=== PATIENT | male | born 1950 | race Caucasian/White ===

== ENCOUNTER 2019-10-07 15:30 | Emergency (ER) | payer MEDICARE, MEDICAID, SELFPAY ==
[2019-10-07 16:22] VITALS: BP 138/88; PULSE 60; RESP 16; TEMP 36.7; O2SAT 100; BMI 32.5
--- NOTE | 2019-10-07 16:34 | XRR_ITS ---
PROCEDURE INFORMATION: Exam: XR Right Tibia and Fibula Exam date and time: 10/07/2019 5:15 PM Age: 68 years old Clinical indication: Injury or trauma; Fall; Initial encounter; Blunt trauma; Lower leg; Right; Injury date: 10/07/19 TECHNIQUE: Imaging protocol: XR Right tibia and fibula. Views: 2 views. COMPARISON: No relevant prior studies available. FINDINGS: Bones/joints: There are fractures of the distal tibia and distal fibula. These are better evaluated on ankle radiographs and described on corresponding report. No fracture of the proximal or mid tibia identified. No fracture of the proximal or mid fibula identified. Soft tissues: No subcutaneous gas or radiopaque foreign body identified. XR/XR tibia fibula RT 2V [id number] IMPRESSION: 1. There are fractures of the distal tibia and distal fibula. These are better evaluated on ankle radiographs and described on corresponding report.
--- NOTE | 2019-10-07 16:35 | W.ED.EXTPRO ---
Documented by User: Katarzyna Belcher APRN 10/07/19 18:01 HPI - Extremity Problem General: Chief complaint: Extremity Injury, Lower Stated complaint: Right ankle injury Time Seen by Provider: 10/07/19 16:30 Source: patient Mode of arrival: wheelchair History of Present Illness: HPI Narrative: Fell walking down dirt road, slipping on rocks. Since fall left foot has been externally rotated and due to pain patient is unable to correct. Patient complains of pain starting at his knee into his lower aspect of his ankle on the right side. MD Complaint: extremity pain Review of Systems General: Reports: 10 or more systems reviewed and unremarkable except in HPI and below Neuro: Reports: difficulty walking (Fell right LE externally rotated. Pain in LLE. ) and other PFSH ED PFSH: Social History (Updated 10/07/19 @ 16:29 by Camilo Phoenix RN) Smoking and tobacco status: never smoked Alcohol intake: current Alcohol intake frequency: holidays/special occasions only Substance/Drug Use: never Physical Exam Const: COMMON NORMALS: no acute distress, patient oriented x3 and alert GENERAL APPEARANCE: cooperative and well kempt HENMT: COMMON NORMALS: normocephalic, atraumatic, external ears normal and TM's normal bilaterally HEAD & SCALP: normocephalic and atraumatic EXTERNAL EAR: Yes external ears normal TYMPANIC MEMBRANE: TM's normal bilaterally MOUTH: Normal oral and palatal mucosa present Eye: COMMON NORMALS: Equal, round and reactive pupils present GENERAL EYE: appearance normal, both eyes and all related structures PUPIL: Yes Equal, round and reactive pupils present and Yes Pupil accommodation reflex normal Neck/C-Spine: COMMON NORMALS: full ROM, no lymphadenopathy, supple, no JVD, Thyroid normal and No carotid bruits GENERAL: Yes trachea midline THYROID: Thyroid normal, no masses and nontender Lymph: LYMPHATIC: no lymphadenopathy noted Chest: CHEST: Yes Symmetrical chest wall rise Resp: COMMON NORMALS: normal respiratory effort and clear to auscultation bilaterally EFFORT & INSPECTION: Yes able to speak in complete sentences AUSCULTATION: clear to auscultation bilaterally Cardio: COMMON NORMALS: no JVD, regular rhythm and No murmurs present (Cardio) PALPATION: normal PMI RHYTHM: regular rhythm GI: COMMON NORMALS: non-tender, no masses and no bruits INSPECTION: Yes normal to inspection, No scar and No striae AUSCULTATION: Yes normoactive bowel sounds PALPATION: No Tenderness to palpation present (GI), No Guarding due to palpation present (GI), No Rigid due to palpation, No Hernia present and No Rebound tenderness present PERCUSSION: normal to percussion Back/Pelvis: GENERAL BACK: No swelling and No tenderness THORACIC SPINE/UPPER BACK: No pain with ROM Extremity: COMMON NORMALS: normal to inspection, no clubbing, cyanosis or edema and no calf tenderness RIGHT LOWER EXTREMITY: Yes foot & digits (Localized edema to central aspect of ankle/lower leg. ) and Yes foot & digits (Foot angled externally, unable to correct due to pain per pt. ) Neuro: COMMON NORMALS: patient oriented x3 and moves all extremities SENSORIUM/ORIENTATION: Yes alert CRANIAL NERVES: Yes CN normal except as noted GAIT: Yes Normal gait present MOTOR EXAM: 5/5 motor strength present throughout Psych: COMMON NORMALS: mental status grossly normal APPEARANCE: Yes well kempt Skin: COMMON NORMALS: turgor normal NARRATIVE SKIN EXAM: Normal coloration of skin GENERAL SKIN EXAM: turgor normal LESIONS: no lesions RASHES: no rashes TRAUMA: no lacerations or abrasions Course Consultations: Consultation #3: Contacting regarding Bim[place]or fracture Rt. Time: 17:59 Vital Signs: Vital signs: Vital Signs Temperature 98.0 F 10/07/19 16:22 Pulse Rate 64 10/07/19 20:18 Respiratory Rate 16 10/07/19 20:18 Blood Pressure 131/54 10/07/19 20:18 Pulse Oximetry 100 10/07/19 20:18 MDM - Extremity (Nontraumatic) Lab Data: Labs: Lab Results 10/07/19 10/07/19 Range/Units 16:50 16:50 WBC 10.5 H (4.0-10.0) 10^3/ uL RBC 4.99 (4.1-5.3) 10^6/u L Hgb 15.0 (11.7-16.6) g/dL Hct 45.8 (42.0-52.0) % MCV 91.8 (80-94) fL MCH 30.1 (28.0-34.0) pg MCHC 32.8 (30.0-36.0) g/dL RDW 13.2 (12.1-15.1) % Plt Count 294 (130-400) 10^3/c mm MPV 11.3 H (7.4-10.4) fL Neut % (Auto) 75.5 % Lymph % (Auto) 12.7 % Gates % (Auto) 8.6 % Eos % (Auto) 1.9 % Baso % (Auto) 1.0 % Neut # (Auto) 7.93 H (1.8-7.7) 10^3/u L Lymph # (Auto) 1.3 (0.8-4.8) 10^3/u L Gates # (Auto) 0.9 (0.2-0.9) 10^3/u L Eos # (Auto) 0.2 (0.0-0.8) 10^3/u L Baso # (Auto) 0.1 (0.0-0.1) 10^3/u L Nucleated RBC % (a uto) 0 % Nucleated RBCs # 0.0 /100WBC Sodium 137 (136-145) mmol/L Potassium 3.4 L (3.5-5.1) mmol/L Chloride 98 (98-107) mmol/L Carbon Dioxide 28 (22-29) mmol/L Anion Gap 14.4 (5-19) BUN 14 (8-23) mg/dL Creatinine 1.1 (0.7-1.2) mg/dL GFR Calculation 67.0 L (90-130) mL/min Glucose 158 H (65-115) mg/dL Calculated Osmolal ity 284 L (285-295) mOsm/k g Calcium 9.4 (8.5-10.5) mg/dL Total Bilirubin 0.7 (0.15-1.2) mg/dL AST 34 (0-40) U/L ALT 60 H (0-41) U/L Alkaline Phosphata se 79 (40-130) IU/L Total Protein 6.8 (6.6-8.7) g/dL Albumin 4.3 (3.5-5.2) g/dL Globulin 2.5 (1.3-4.6) g/dL Discharge Plan Discharge Patient Disposition: Home, Self-Care Clinical Impression: Ankle fracture, right Qualifiers: Encounter type: initial encounter Fracture type: closed Qualified Code(s): S82.891A - Other fracture of right lower leg, initial encounter for closed fracture Condition: Stable Prescriptions: [place] 5-325 mg tablet 1 tab PO Q6H PRN (Reason: pain) 5 Days Qty: 20 RF: 0 Zofran 4 mg tablet 4 mg PO Q6H PRN (Reason: nausea and vomiting) Qty: 20 RF: 0 Discharge Orders: Discharge Order (Routine); Ordered 10/07/19 Ordered By: Cait Cobos Referrals: Sherri Iyer MD [Physician] - 1-3 days Discharge Diet: Advance as tolerated Discharge Activity: Use walker/crutches as instructed Patient Instructions: Ankle Fracture (ED) Activity Restrictions/Additional Instructions: Please return to the ER immediately for any of the signs or symptoms listed on your discharge instruction sheets, worsening/changing of your symptoms, you are not getting better as quickly as expected, or for ANY other cause or concerns. Take your pain medications as I have directed. Keep your leg elevated above your heart as much as possible and do not bear weight on your leg at any time. Be certain to follow-up with Dr. Downs as soon as possible as she will need to schedule an outpatient surgery for definitive fixation. Discharge Date/Time: 10/07/19 20:24 Sign Out Sign Out Data: Patient Sign Out occurred on 10/07/19 at 18:05. Patient's care was discussed, and care was transferred from to Cait Cobos. Coding Level of Care Code ED Tune Up Mechanic for Chg Fwd Exam Comprehensive Documented by User: Cait Cobos 10/07/19 23:07 HPI - Extremity Problem General: Chief complaint: Extremity Injury, Lower Stated complaint: Right ankle injury Time Seen by Provider: 10/07/19 16:30 [facility] ED PFSH: Social History (Updated 10/07/19 @ 16:29 by Camilo Phoenix RN) Smoking and tobacco status: never smoked Alcohol intake: current Alcohol intake frequency: holidays/special occasions only Substance/Drug Use: never Procedures Orthopedic Fracture Reduction Fracture #1: Time Out Performed: Yes Side: right Fracture Reduction Location: other (Bimalleolar right ankle fracture) Analgesia: procedural sedation Technique: direct manipulation Post Reduction X-rays Demonstrate: anatomical reduction Post-reduction neuro exam: intact Splint Applied: Yes Patient Tolerated Procedure: well Procedural Sedation Indication: fracture/dislocation reduction ASA Class: II Preparation: bulk delivery driver applied, pulse oximeter, capnometry used, supplemental O2 applied and suction/airway equipment at bedside IV Propofol dose (mg): 200 Patient Tolerated Procedure: well and no complications Complications: none Course Vital Signs: Vital signs: Vital Signs Temperature 98.0 F 10/07/19 16:22 Pulse Rate 64 10/07/19 20:18 Respiratory Rate 16 10/07/19 20:18 Blood Pressure 131/54 10/07/19 20:18 Pulse Oximetry 100 10/07/19 20:18 MDM - Extremity (Nontraumatic) MDM Narrative: Medical decision making narrative: Case turned over to me after identification of fractures on x-ray by the nurse practitioner. Pre-and post reduction films were discussed with Dr. Downs, she would like the patient to be nonweightbearing and follow-up with her in the clinic to schedule for surgery. Patient was neurovascular intact after had a questions or concerns. He denied any injuries to any other parts of his body. Lab Data: Labs: Lab Results 10/07/19 10/07/19 Range/Units 16:50 16:50 WBC 10.5 H (4.0-10.0) 10^3/ uL RBC 4.99 (4.1-5.3) 10^6/u L Hgb 15.0 (11.7-16.6) g/dL Hct 45.8 (42.0-52.0) % MCV 91.8 (80-94) fL MCH 30.1 (28.0-34.0) pg MCHC 32.8 (30.0-36.0) g/dL RDW 13.2 (12.1-15.1) % Plt Count 294 (130-400) 10^3/c mm MPV 11.3 H (7.4-10.4) fL Neut % (Auto) 75.5 % Lymph % (Auto) 12.7 % Gates % (Auto) 8.6 % Eos % (Auto) 1.9 % Baso % (Auto) 1.0 % Neut # (Auto) 7.93 H (1.8-7.7) 10^3/u L Lymph # (Auto) 1.3 (0.8-4.8) 10^3/u L Gates # (Auto) 0.9 (0.2-0.9) 10^3/u L Eos # (Auto) 0.2 (0.0-0.8) 10^3/u L Baso # (Auto) 0.1 (0.0-0.1) 10^3/u L Nucleated RBC % (a uto) 0 % Nucleated RBCs # 0.0 /100WBC Sodium 137 (136-145) mmol/L Potassium 3.4 L (3.5-5.1) mmol/L Chloride 98 (98-107) mmol/L Carbon Dioxide 28 (22-29) mmol/L Anion Gap 14.4 (5-19) BUN 14 (8-23) mg/dL Creatinine 1.1 (0.7-1.2) mg/dL GFR Calculation 67.0 L (90-130) mL/min Glucose 158 H (65-115) mg/dL Calculated Osmolal ity 284 L (285-295) mOsm/k g Calcium 9.4 (8.5-10.5) mg/dL Total Bilirubin 0.7 (0.15-1.2) mg/dL AST 34 (0-40) U/L ALT 60 H (0-41) U/L Alkaline Phosphata se 79 (40-130) IU/L Total Protein 6.8 (6.6-8.7) g/dL Albumin 4.3 (3.5-5.2) g/dL Globulin 2.5 (1.3-4.6) g/dL Imaging Data^: Right ankle: My impression: Postreduction films reviewed and have good anatomical alignment. Discharge Plan Discharge Patient Disposition: Home, Self-Care Clinical Impression: Ankle fracture, right Qualifiers: Encounter type: initial encounter Fracture type: closed Qualified Code(s): S82.891A - Other fracture of right lower leg, initial encounter for closed fracture Condition: Stable Prescriptions: [place] 5-325 mg tablet 1 tab PO Q6H PRN (Reason: pain) 5 Days Qty: 20 RF: 0 Zofran 4 mg tablet 4 mg PO Q6H PRN (Reason: nausea and vomiting) Qty: 20 RF: 0 Discharge Orders: Discharge Order (Routine); Ordered 10/07/19 Ordered By: Cait Cobos Referrals: Sherri Iyer MD [Physician] - 1-3 days Discharge Diet: Advance as tolerated Discharge Activity: Use walker/crutches as instructed Patient Instructions: Ankle Fracture (ED) Activity Restrictions/Additional Instructions: Please return to the ER immediately for any of the signs or symptoms listed on your discharge instruction sheets, worsening/changing of your symptoms, you are not getting better as quickly as expected, or for ANY other cause or concerns. Take your pain medications as I have directed. Keep your leg elevated above your heart as much as possible and do not bear weight on your leg at any time. Be certain to follow-up with Dr. Downs as soon as possible as she will need to schedule an outpatient surgery for definitive fixation. Discharge Date/Time: 10/07/19 20:24 Sign Out Sign Out Data: Patient Sign Out occurred on 10/07/19 at 18:05. Patient's care was discussed, and care was transferred from to Cait Cobos. Coding Level of Care Code ED Tune Up Mechanic for Chg Fwd Exam Comprehensive
--- NOTE | 2019-10-07 16:37 | XRR_ITS ---
PROCEDURE INFORMATION: Exam: XR Right Hip with Pelvis when Performed Exam date and time: 10/07/2019 5:13 PM Age: 68 years old Clinical indication: Injury or trauma; Fall; Initial encounter; Blunt trauma (contusions or hematomas); Right; Hip; Injury date: 10/07/19; Additional info: Injury/fall TECHNIQUE: Imaging protocol: XR Right hip with pelvis when performed. Views: 1 view. COMPARISON: No relevant prior studies available. FINDINGS: Bones/joints: No fractures or dislocations identified. No significant bony abnormality identified. Soft tissues: No subcutaneous gas or radiopaque foreign body identified. XR/XR hip RT 2-3V wo/w pel* [id number] IMPRESSION: 1. No fractures or dislocations identified.
--- NOTE | 2019-10-07 16:37 | XRR_ITS ---
PROCEDURE INFORMATION: Exam: XR Right Knee Exam date and time: 10/07/2019 5:13 PM Age: 68 years old Clinical indication: Injury or trauma; Fall; Initial encounter; Blunt trauma; Knee; Right; Injury date: 10/07/19; Additional info: Injury/fall TECHNIQUE: Imaging protocol: XR Right knee. Views: 3 views. COMPARISON: No relevant prior studies available. FINDINGS: Bones/joints: No fractures or dislocations identified. No significant bony abnormality identified. Soft tissues: No subcutaneous gas or radiopaque foreign body identified. XR/XR knee RT 3V* [id number] IMPRESSION: 1. No fractures or dislocations identified.
--- NOTE | 2019-10-07 16:39 | XRR_ITS ---
PROCEDURE INFORMATION: Exam: XR Right Foot Exam date and time: 10/07/2019 5:14 PM Age: 68 years old Clinical indication: Injury or trauma; Fall; Initial encounter; Blunt trauma; Foot; Right; Injury date: 10/07/19; Additional info: Injury/fall TECHNIQUE: Imaging protocol: XR Right foot. Views: 1 or 2 views. COMPARISON: No relevant prior studies available. FINDINGS: Bones/joints: There are fractures of the distal tibia and distal fibula. These are better evaluated on ankle radiographs and described on corresponding report. No fractures or dislocations identified involving the foot. Soft tissues: No subcutaneous gas or radiopaque foreign body identified. XR/XR foot RT 2V [id number] IMPRESSION: 1. No fractures or dislocations identified involving the foot.
--- NOTE | 2019-10-07 16:39 | XRR_ITS ---
PROCEDURE INFORMATION: Exam: XR Right Ankle Exam date and time: 10/07/2019 5:14 PM Age: 68 years old Clinical indication: Injury or trauma; Fall; Initial encounter; Blunt trauma; Ankle; Right; Injury date: 10/07/19; Additional info: Injury/fall TECHNIQUE: Imaging protocol: XR Right ankle. Views: 1 or 2 views. COMPARISON: No relevant prior studies available. FINDINGS: Bones/joints: There is a fracture through the distal tibial metaphysis with extension to the fracture line. This is best seen on lateral view, where there is approximately 0.8 cm posterior displacement and 0.3 cm superior displacement of the major posterior fragment (which contains the posterior malleolus) relative to the major anterior fragment. There is a comminuted fracture of the distal fibular shaft. The major distal fracture fragment is displaced approximately 0.4 cm medially relative to the major proximal fracture fragment. There is severe posterior subluxation of the tibiotalar joint. Soft tissues: Marked supper circumferential soft tissue swelling about the ankle. XR/XR ankle RT 2V [id number] IMPRESSION: 1. Posterior malleolar fracture of the tibia. 2. Fracture of the distal shaft of the tibia. 3. Severe posterior subluxation of the tibiotalar joint.
[2019-10-07 16:55] LABS: Basophils # 0.1 10^3/uL (0.0-0.1); Eosinophils # 0.2 10^3/uL (0.0-0.8); Eosinophils % 1.9 %; Hematocrit 45.8 % (42.0-52.0); Lymphocytes # 1.3 10^3/uL (0.8-4.8); Lymphocytes % 12.7 %; Mean Corpuscular HGB Conc 32.8 g/dL (30.0-36.0); Mean Corpuscular Hemoglobin 30.1 pg (28.0-34.0); Mean Corpuscular Volume 91.8 fL (80-94); Mean Platelet Volume 11.3 fL (7.4-10.4); Monocytes # 0.9 10^3/uL (0.2-0.9); Monocytes % 8.6 %; Neutrophils # 7.93 10^3/uL (1.8-7.7); Neutrophils % 75.5 %; Nucleated Red Blood Cells % 0 %; Platelet Count 294 10^3/cmm (130-400); Red Blood Count 4.99 10^6/uL (4.1-5.3); Red Cell Distribution Width 13.2 % (12.1-15.1); White Blood Count 10.5 10^3/uL (4.0-10.0)
[2019-10-07 16:56] VITALS: BP 107/78; PULSE 66; RESP 15; O2SAT 98
--- NOTE | 2019-10-07 17:12 | XRR_ITS ---
PROCEDURE INFORMATION: Exam: XR Chest, 1 View Exam date and time: 10/07/2019 5:15 PM Age: 68 years old Clinical indication: Injury or trauma; Fall; Initial encounter; Blunt trauma (contusions or hematomas); Injury date: 10/07/19 TECHNIQUE: Imaging protocol: XR of the chest Views: 1 view. COMPARISON: No relevant prior studies available. FINDINGS: Lungs: Mild patchy atelectasis at bilateral lung bases. No airspace consolidation identified. Pulmonary vasculature within normal limits. Pleural space: No visible pneumothorax or pleural effusion. Heart/Mediastinum: Heart size within normal limits. Bones/joints: No emergent findings identified. XR/XR chest 1V portable [id number] IMPRESSION: 1. No radiographic findings of acute cardiopulmonary disease.
[2019-10-07 17:15] LABS: Alanine Aminotransferase 60 U/L (0-41); Albumin Level 4.3 g/dL (3.5-5.2); Alkaline Phosphatase 79 IU/L (40-130); Anion Gap 14.4 (5-19); Aspartate Amino Transferase 34 U/L (0-40); Blood Urea Nitrogen 14 mg/dL (8-23); Calcium 9.4 mg/dL (8.5-10.5); Carbon Dioxide 28 mmol/L (22-29); Chloride 98 mmol/L (98-107); Globulin 2.5 g/dL (1.3-4.6); Glucose 158 mg/dL (65-115); Osmolality Calculated 284 mOsm/kg (285-295); Potassium 3.4 mmol/L (3.5-5.1); Sodium 137 mmol/L (136-145); Total Bilirubin 0.7 mg/dL (0.15-1.2); Total Protein 6.8 g/dL (6.6-8.7)
[2019-10-07 17:31] VITALS: RESP 20
[2019-10-07] MEDS: ondansetron 2 mg/ML SDV 2 mL 4 MG IVP (17:31)
[2019-10-07] MEDS: morphine 4 mg/mL SDV 1 mL 2 MG IVP (17:31)
[2019-10-07 17:35] VITALS: PULSE 68; RESP 18; O2SAT 96
[2019-10-07 18:25] VITALS: BP 135/70; PULSE 64; RESP 20; O2SAT 100
--- NOTE | 2019-10-07 18:51 | XRR_ITS ---
PROCEDURE INFORMATION: Exam: XR Right Ankle Exam date and time: 10/07/2019 7:14 PM Age: 68 years old Clinical indication: Injury or trauma; Fall; Initial encounter; Fracture, traumatic; Closed fracture; Fibula and tibia; Right; Injury date: 10/07/19; Additional info: Postreduction TECHNIQUE: Imaging protocol: XR Right ankle. Views: 1 or 2 views. COMPARISON: CR XR ankle RT 2V [id number] 10/07/2019 4:56 PM FINDINGS: Bones/joints: Fracture of the posterior malleolus of the tibia has been reduced. There remains approximately 0.3 cm posterior displacement of the major posterior fragment. Fracture of the distal shaft of the fibula has been reduced. There remains approximately 0.5 cm posterior displacement of the major distal fragment. Previously seen severe posterior subluxation of the tibiotalar joint has been reduced. Soft tissues: Marked circumferential soft tissue swelling about the ankle. XR/XR ankle RT 2V [id number] IMPRESSION: 1. Fracture of the posterior malleolus of the tibia has been reduced. There remains mild posterior displacement of the major posterior fragment. 2. Fracture of the distal shaft of the fibula has been reduced. There remains mild posterior displacement of the major distal fragment. 3. Previously seen severe posterior subluxation of the tibiotalar joint has been reduced.
[2019-10-07] MEDS: propofol 10 mg/mL SDV 20 mL 400 MG IVP (19:13)
[2019-10-07] MEDS: sodium chloride 0.9% 1,000 ML 999 ML IV (19:16)
[2019-10-07 20:18] VITALS: BP 131/54; PULSE 64; RESP 16; O2SAT 100
--- NOTE | 2019-10-08 12:18 | DCPLANNER ---
e business project manager had message to schedule a follow up appointment for patient with ortho. e business project manager called the ortho clinic, spoke with Nely, gave clinic patients information. e business project manager was told that patients information would be printed and reviewed. Clinic will call patient with appointment information.
--- NOTE | 2019-10-09 15:18 | DCPLANNER ---
Yara from [facility] called disease case manager rn, stating that when clinic called patient to schedule follow up that patient stated that he does not live in the area, and that he will follow up where he lives.
== END 2019-10-07 20:24 | disposition home or self-care (01) ==
PROVIDERS: Nurse Practitioner Family; Emergency Provider Emergency Medicine
DX: S82.51XA Displaced fracture of medial malleolus of right tibia, initial encounter for closed fracture (principal); S82.301A Unspecified fracture of lower end of right tibia, initial encounter for closed fracture; W01.0XXA Fall on same level from slipping, tripping and stumbling without subsequent striking against object, initial encounter
CPT/HCPCS: 12345; 27810; 29515; 36415; 71045; 73502; 73562; 73590; 73600; 73620; 80053; 85025; 96361; 96374; 96375; 99282; 99284; E0114; J2270; J2405; J2704; J7030